=== PATIENT | female | born 1965 | race Caucasian/White ===

== ENCOUNTER 2023-10-13 18:36 | Emergency (ER) | payer BC ==
[~2023-10-13] VITALS: Ht 165.1 cm; Wt 66.2 kg
[2023-10-13] MEDS ORDERED: KETOROLAC TROMETHAMINE 30 MG INJ IM ONE (19:30)
[2023-10-13] MEDS ORDERED: KETOROLAC TROMETHAMINE 30 MG INJ ONE (19:43)
[2023-10-13] MEDS ORDERED: IBUP-1955 PO (21:10)
[2023-10-13] MEDS ORDERED: HYDR-4209 PO (21:12)
[2023-10-13] MEDS ORDERED: ACET-2605 PO (21:12)
[2023-10-13 22:34] VITALS: BP 148/82; TEMP 98.7; O2SAT 100
== END 2023-10-13 22:30 | disposition home or self-care (01) ==
LOC: ER 18:39
DX: S92.321A Displaced fracture of second metatarsal bone, right foot, initial encounter for closed fracture (principal); S92.331A Displaced fracture of third metatarsal bone, right foot, initial encounter for closed fracture; S92.341A Displaced fracture of fourth metatarsal bone, right foot, initial encounter for closed fracture; Z79.899 Other long term (current) drug therapy; W18.39XA Other fall on same level, initial encounter; Y93.89 Activity, other specified; Y92.89 Other specified places as the place of occurrence of the external cause; Y99.8 Other external cause status
CPT/HCPCS: 73610; 73630; A4606; A4663; J1885